=== PATIENT | male | born 1980 ===

== ENCOUNTER → 2018-09-11 | Outpatient (CLI) | payer OTHER ==
--- NOTE | 2018-09-11 14:53 | KCIC ---
Complete abdomen ultrasound study Clinical indications: History of right ureteral stent and urinary tract stone. Right-sided pain. FINDINGS: Midline structures including the pancreas and IVC and abdominal aorta are not well visualized due to overlying bowel gas. What is visualized of the abdominal aorta demonstrates no focal aneurysmal dilatation. What is visualized of the pancreas demonstrates no focal enlargement. The intrahepatic portion of the IVC is visualized and is not abnormally dilated. The liver measures 15 cm in length which is normal. No hepatic mass is seen. The gallbladder is normal without gallstones. The extrahepatic bile duct measures 4.7 mm in caliber which is normal. The length of the right kidney is 11.1 cm. The length of the left kidney is 10.1 cm. No hydronephrosis or renal mass or perinephric fluid collection is seen on either side. The spleen is not enlarged measuring 10.7 cm in length. No ascites is evident. Urinary bladder is mildly distended. No intraluminal echodensities or masses are seen. Prostate gland measures 26 cc in volume. Bilateral ureteral jets are seen. IMPRESSION: Unremarkable study. No hydronephrosis is seen. Electronically signed by: Juan Jones MD (09/11/2018 2:50 PM) [facility]
== END | disposition home or self-care (01) ==
LOC: KCIC US 07:46
PROVIDERS: ATTEND Urology
DX: N32.89 Other specified disorders of bladder (principal); Z96.0 Presence of urogenital implants; Z87.442 Personal history of urinary calculi
CPT/HCPCS: 76700